=== PATIENT | female | born 1980 | race Caucasian/White ===

== ENCOUNTER 2020-08-12 16:25 | Emergency (ER) | payer MEDICARE, MEDICAID ==
[~2020-08-12] VITALS: Ht 170 cm; Wt 121.0 kg
--- NOTE | 2020-08-12 16:40 | ED Upper Extremity ---
General Chief Complaint: Laceration Stated Complaint: R ELBOW LAC Source: patient Exam Limitations: no limitations History of Present Illness Date Seen by Provider: Aug 12, 2020 Time Seen by Provider: 16:33 Initial Comments This is a well-appearing 40-year-old female who presents to the ER via POV with complaints of right elbow pain after she pushed her right elbow through a glass door at her house. States the door was stuck and she was using her right arm to push it open when suddenly the glass broke. States there appeared to be a lot of bleeding so her daughter called EMS. No head/neck trauma. Denies any other injury. Pain is localized to laceration site. Describes as burning/stinging sensation. Unknown last tetanus. Allergies and Home Medications Allergies Coded Allergies: No Known Drug Allergies (Unverified , 08/12/20) Patient Home Medication List Home Medication List Reviewed: Yes Review of Systems Constitutional: no symptoms reported EENTM: no symptoms reported Respiratory: no symptoms reported Cardiovascular: no symptoms reported Gastrointestinal: no symptoms reported Genitourinary: no symptoms reported Musculoskeletal: see HPI Skin: see HPI Psychiatric/Neurological: No Symptoms Reported Physical Exam Vital Signs Vital Signs - First Documented 08/12/20 16:28 Temp 36.6 Pulse 80 Resp 18 B/P (MAP) 194/97 (129) Pulse Ox 98 O2 Delivery Room Air Capillary Refill : Height, Weight, BMI Height: '" Weight: lbs. oz. kg; BMI Method: General Appearance: WD/WN, no apparent distress HEENT: PERRL/EOMI, normal ENT inspection Neck: full range of motion, supple, normal inspection Progress/Results/Core Measures Results/Orders My Orders Orders - URMILA NAVARRO APRN Elbow, Right, 3 Views (08/12/20 16:29) Dipht,Pertuss(Acell),Tet Adult (Boostrix (08/12/20 16:45) Lidocaine 1% Inj 20 Ml (Xylocaine 1% Inj (08/12/20 16:45) Medications Given in ED Current Medications Medications Dose Ordered Sig/Jenise Route Start Time Stop Time Status Last Admin Dose Admin Diphtheria/ Tetanus/Acell Pertussis 0.5 ml ONCE ONCE IM 08/12/20 16:45 08/12/20 16:46 DC 08/12/20 16:50 0.5 ML Lidocaine HCl 20 ml ONCE ONCE INJ 08/12/20 16:45 08/12/20 16:46 DC 08/12/20 16:54 20 ML Vital Signs/I&O 08/12/20 16:28 Temp 36.6 Pulse 80 Resp 18 B/P (MAP) 194/97 (129) Pulse Ox 98 O2 Delivery Room Air Departure Impression Primary Impression: Laceration of elbow, right Disposition: 01 HOME, SELF-CARE Condition: Improved Departure-Patient Inst. Decision time for Depature: 17:37 Referrals: MIKE STEINER MD (PCP/Family) Primary Care Physician Patient Instructions: Laceration Repair With Stitches ED, Diphtheria and Tetanus Toxoids, Wound Care Add. Discharge Instructions: Plan: 1. Keep area clean and dry. You can change your dressing in 24 hours. Wash around site gently with mild soap and water, rinse, pat dry. Keep dry cover in place for the first couple days until site no longer draining. 2. You may shower, do not scrub or soak area. No swimming while sutures in place. 3. Return to ER on 08/22/20 for suture removal. 4. Monitor for signs of infection: redness, green or discharge that has foul odor, swelling, increased pain, fever. Return or follow up with your doctor if your symptoms persist. 5. May take Tylenol or Ibuprofen as needed for pain per package. 6. Take antibiotics as directed and complete full course. 7. Return to ER for any new, concerning, or worsening symptoms. All discharge instructions reviewed with patient and/or family. Voiced understanding. Scripts Cephalexin (Cephalexin) 500 Mg Tablet 500 MG PO TID for 5 Days, #15 TAB 0 Refills Prov: URMILA NAVARRO [employer]ICER 08/12/20 URMILA NAVARRO [employer]OR[employer] OFFICER Aug 12, 2020 16:40
[2020-08-12] MEDS ORDERED: LIDOCAINE 1% INJ 20 ML 20 ML VIAL INJ ONE (16:45)
[2020-08-12] MEDS ORDERED: TETANUS,DIPTH,PERTUSS P/F (BOOSTRIX) 0.5 ML VIAL IM ONE (16:45)
--- NOTE | 2020-08-12 16:54 | Diagnostic Imaging Report ---
INDICATION: Right elbow pain. FINDINGS: Three views of the right elbow show no fracture, dislocation, or other acute abnormalities. IMPRESSION: Negative right elbow. Dictated by: Dictated on workstation # [id number]
[2020-08-12] MEDS ORDERED: CEPH500T PO (17:44)
[2020-08-12 17:50] VITALS: BP 129/76
[2020-08-12] MEDS ORDERED: CEPHALEXIN 250 MG (KEFLEX) CAP PO ONE (18:00)
== END 2020-08-12 18:02 | disposition home or self-care (01) ==
LOC: ER 16:29 → EDBD 16:29 → ER 18:02
DX: S51.011A Laceration without foreign body of right elbow, initial encounter (principal); Z23 Encounter for immunization; W25.XXXA Contact with sharp glass, initial encounter; Y92.009 Unspecified place in unspecified non-institutional (private) residence as the place of occurrence of the external cause
CPT/HCPCS: 12002; 73080; 90715